=== PATIENT | male | born 1945 | race Caucasian/White ===

== ENCOUNTER 2017-12-07 05:23 | Day surgery (SDC) | payer MEDICARE, BC ==
[2017-12-07] MEDS ORDERED: fentaNYL 100 MCG/2 ML SDV IV ONE ×3 (05:24→06:32)
[2017-12-07] MEDS ORDERED: Midazolam 1 MG/ML 2 ML SDV IV ONE ×4 (05:24→06:34)
[2017-12-07] MEDS ORDERED: Dextrose 5%-0.45% NaCl 1,000 ML IV SCH (06:00)
[2017-12-07] MEDS ORDERED: Midazolam 1 MG/ML 2 ML SDV ONE (06:17)
[2017-12-07] MEDS ORDERED: fentaNYL 100 MCG/2 ML SDV ONE (06:17)
--- NOTE | 2017-12-07 07:42 | OR ---
DATE: 12/07/2017 PROCEDURE PERFORMED: Esophagogastroduodenoscopy and multiple pinch biopsies. INSTRUMENT USED: GIF-H180 Olympus video panendoscope. PREMEDICATIONS: No oral topical anesthesia used. Fentanyl 100 mcg intravenous and Versed 2 mg intravenous. Nasal O2 cannula. The procedure was done under pulse oximetry, BP recording, and desk monitor. INDICATION: The patient with episodes of nausea and dyspepsia, on long-term aspirin with iron deficiency anemia. Esophagogastroduodenoscopy is performed for detection of any active erosive lesions, Saul esophagus and/or malignancy also under consideration, H. pylori status to be determined, small bowel biopsies to be obtained if indicated, endoscopic hemostasis therapy if needed. DESCRIPTION OF PROCEDURE: The scope was passed with ease. Adequate visualization of the esophagus was made from proximal to distal areas. No upper esophageal lesions identified. No distal esophageal stricture. No uphill or downhill esophageal varices. No Ela-Cueva tear. No evidence of erosions by [place] criteria. No esophageal polyp or tumor mass identified. Z-line was seen at around 40 cm distal to the oral verge, configuration consistent with grade 1 by ZAP classification. No proximal gastric varices noted. Gastric fundus examination by retroflexion showed no polypoid lesions. No gastric ulcer, malignant mass, or vascular ectasia identified. Some scattered gastric antral erosions were noted without bleeding from them. Multiple pinch biopsies were taken from the gastric antrum and proximal body and sent for PyloriTek test for H. pylori, and if negative in an hour, the tissue was to be sent for histopathology. Duodenal bulb showed no ulcer. Visualized second part of the duodenum was unremarkable. No bleeding was noted from any of the visualized areas at the completion of examination. Photographs were taken of the duodenal bulb, gastric antrum and fundus, and distal esophagus. IMPRESSION: Gastric antral erosions. The patient tolerated the procedure well. [facility] /[id number]
[2017-12-07 08:36] VITALS: BP 138/49
== END 2017-12-07 08:40 | disposition home or self-care (01) ==
LOC: DL.ENDO 05:23
PROVIDERS: ATTEND Internal Medicine Gastroenterology
DX: K29.50 Unspecified chronic gastritis without bleeding (principal); K25.9 Gastric ulcer, unspecified as acute or chronic, without hemorrhage or perforation; D50.9 Iron deficiency anemia, unspecified; I10 Essential (primary) hypertension; I73.9 Peripheral vascular disease, unspecified; G47.30 Sleep apnea, unspecified; E78.5 Hyperlipidemia, unspecified; E66.09 Other obesity due to excess calories; Z79.82 Long term (current) use of aspirin; Z88.8 Allergy status to other drugs, medicaments and biological substances
CPT/HCPCS: 43239; 87077; J2250; J3010; J7042

== ENCOUNTER 2017-12-09 06:22 | Day surgery (SDC) | payer MEDICARE, BC ==
[~2017-12-09 06:22] MED LIST: Midazolam 1 MG/ML 2 ML SDV ONE; fentaNYL 100 MCG/2 ML SDV ONE
[2017-12-09] MEDS ORDERED: Midazolam 1 MG/ML 2 ML SDV IV ONE (06:23)
[2017-12-09] MEDS ORDERED: fentaNYL 100 MCG/2 ML SDV IV ONE (06:23)
[2017-12-09] MEDS: Dextrose 5%-0.45% NaCl 1,000 ML IV SCH (06:45)
[2017-12-09] MEDS: fentaNYL 100 MCG/2 ML SDV IV ONE ×2 (07:32→07:33)
[2017-12-09] MEDS: Midazolam 1 MG/ML 2 ML SDV IV ONE ×4 (07:34→07:38)
--- NOTE | 2017-12-09 08:53 | OR ---
DATE: 12/09/2017 PROCEDURE PERFORMED: Total colonoscopy. INSTRUMENT USED: CF-H180AL Olympus videocolonoscope. PREMEDICATIONS: Fentanyl 100 mcg intravenous and Versed 3 mg intravenous. Nasal O2 cannula. The procedure was done under pulse oximetry, BP recording, and telemetry monitor. INDICATIONS: The patient with iron deficiency anemia. Colonoscopic examination is done for detection of any polypoid lesions and removal, endoscopic hemostasis therapy if needed. DESCRIPTION OF PROCEDURE: Initial rectal exam was unremarkable. Rigid anoscopy was normal. The colonoscope was passed with ease. Numerous scattered diverticula were noted in the distal left colon along with deformity. There was moderate amount of fecal material that had to be aspirated. The scope was passed with ease up to the ileocecal area, photographs were taken of the normal- appearing cecum identified by landmarks of appendiceal orifice and double-bulged ileocecal folds. No bleeding was noted from any of the visualized areas at the commencement of the examination. No stricture. No vascular ectasia. No large isolated ulcerations seen. No evidence of diffuse inflammatory bowel disease in the form of friability, contact bleeding, or ulcerations. No polyp or tumor mass identified. Probing the proximal sides of folds and flexures, using adequate distention and clearing of the stool material, withdrawal of the scope was made, cecum to rectum time over 6 minutes. No bleeding was noted from any of the visualized areas at the completion of examination. Pigmentation of the mucosa was noted, consistent with melanosis coli. IMPRESSION: 1. Diverticulosis. 2. Melanosis coli. The patient tolerated the procedure well. [facility] /[id number]
[2017-12-09 10:37] VITALS: BP 129/48
== END 2017-12-09 09:42 | disposition home or self-care (01) ==
LOC: DL.ENDO 06:22
PROVIDERS: ATTEND Internal Medicine Gastroenterology
DX: D50.9 Iron deficiency anemia, unspecified (principal); K57.30 Diverticulosis of large intestine without perforation or abscess without bleeding; Z88.8 Allergy status to other drugs, medicaments and biological substances
CPT/HCPCS: 45378; J2250; J3010; J7042

== ENCOUNTER 2020-01-07 05:25 | Day surgery (SDC) | payer MEDICARE, BC ==
[2020-01-07] MEDS ORDERED: fentaNYL 100 MCG/2 ML SDV IV ONE ×3 (05:26→06:36)
[2020-01-07] MEDS ORDERED: Midazolam 1 MG/ML 2 ML SDV IV ONE ×3 (05:26→06:37)
[2020-01-07] MEDS ORDERED: Midazolam 1 MG/ML 2 ML SDV ONE (06:15)
[2020-01-07] MEDS ORDERED: Dextrose 5%-0.45% NaCl 1,000 ML IV SCH (06:15)
[2020-01-07] MEDS ORDERED: fentaNYL 100 MCG/2 ML SDV ONE (06:15)
[2020-01-07 10:26] VITALS: PULSE 59
[2020-01-07 10:27] VITALS: BP 124/43
--- NOTE | 2020-01-07 14:10 | OR ---
DATE: 01/07/2020 PROCEDURE: Esophagogastroduodenoscopy and multiple pinch biopsies. INSTRUMENT USED: GIF-HQ190 Olympus video panendoscope. PREMEDICATIONS: No oral or topical anesthesia used. Fentanyl 100 mcg intravenous, Versed 2 mg intravenous. Nasal O2 cannula. The procedure was done under pulse oximetry, BP recording, and monitoring manager. INDICATION: The patient with recent onset, but persistent mid dysphagia and odynophagia, unexplained and not responsive to medical measures. Esophagogastroduodenoscopy is performed for detection of any active erosive lesions, Saul esophagus and/or malignancy also under consideration, H. pylori status to be determined, esophageal dilatations if indicated, and endoscopic hemostasis therapy if needed. DESCRIPTION OF PROCEDURE: The scope was passed with ease. Adequate visualization of the esophagus was made from proximal to distal areas. No upper esophageal lesions identified. No distal esophageal stricture. No uphill or downhill esophageal varices. No Ela-Cueva tear. No evidence of erosive esophagitis by [place] criteria. No esophageal polyp or tumor mass identified. Z-line was seen at around 40 cm distal to the oral verge, configuration consistent with grade I by ZAP classification. No esophageal polyp or tumor mass identified. Four-quadrant biopsies were taken from the distal and proximal esophagus and sent for any histopathologic evidence of esophageal eosinophilia. No proximal gastric varices noted. Gastric fundus examination by retroflexion showed no polypoid lesions. No gastric ulcer, malignant mass, or vascular ectasia identified. Gastric antral erosion was noted without bleeding from it. Duodenal bulb showed no ulcer. Visualized second part of the duodenum was unremarkable. Multiple pinch biopsies were taken from the gastric antrum and proximal body and sent for PyloriTek test for H. pylori and histopathology. No bleeding was noted from any of the visualized areas at the completion of examination. Photographs were taken of the duodenal bulb, gastric antrum, fundus, and distal esophagus. IMPRESSION: Gastric antral erosions. The patient tolerated the procedure well. [facility] /[id number]
== END 2020-01-07 08:56 | disposition home or self-care (01) ==
LOC: DL.ENDO 05:25
PROVIDERS: ATTEND Internal Medicine Gastroenterology
DX: K25.9 Gastric ulcer, unspecified as acute or chronic, without hemorrhage or perforation (principal); E66.09 Other obesity due to excess calories; I10 Essential (primary) hypertension; E11.9 Type 2 diabetes mellitus without complications; I25.10 Atherosclerotic heart disease of native coronary artery without angina pectoris; D50.9 Iron deficiency anemia, unspecified; Z68.34 Body mass index [BMI] 34.0-34.9, adult
CPT/HCPCS: 43239; 87077; J2250; J3010; J7042

== ENCOUNTER 2023-06-03 12:11 | Emergency (ER) | payer MEDICARE, BC ==
[2023-06-03 12:28] VITALS: BP 122/45; PULSE 69
[2023-06-03] MEDS ORDERED: Pantoprazole 40 MG Vial IVPUSH ONE (12:34)
[2023-06-03] MEDS ORDERED: Sodium Chloride 0.9% 1,000 ML IV ONE (12:35)
[2023-06-03] MEDS ORDERED: Pantoprazole 80 MG in Sodium Chloride 0.9% 100 ML IV SCH (12:45)
[2023-06-03 12:51] LABS: MEAN CORPUSCULAR HEMOGLOBIN 29.3 pg (27.0-34.0); MEAN CORPUSCULAR VOLUME 97.6 fL (80-100); PLATELET COUNT,PLT 281 10^3/uL (150-450); RED BLOOD CELL COUNT 2.08 10^6/uL (4.6-6.2); WHITE BLOOD CELL COUNT,WBC 9.7 10^3/uL (5.0-10.0)
[2023-06-03 12:55] LABS: HEMATOCRIT 20.3 % (40.0-54.0); HEMOGLOBIN 6.1 g/dL (14.0-18.0); LYMPHOCYTES PERCENT AUTO 17.4 % (20.5-50.1); NEUTROPHILS PERCENT AUTO 72.9 % (42.2-75.2)
[2023-06-03 12:56] LABS: BASOPHILS PERCENT AUTO 1.3 % (0.0-1.0); EOSINOPHILS PERCENT AUTO 1.9 % (1.0-3.0); MONOCYTES PERCENT AUTO 7.5 % (2-8)
[2023-06-03] MEDS: Pantoprazole 40 MG Vial IVPUSH ONE ×2 (13:02→13:41)
[2023-06-03 13:07] LABS: A/G RATIO 1.1; ALBUMIN 3.4 g/dL (3.4-5.0); ANION GAP 11.3 mEq/L (7-13); BILIRUBIN TOTAL 0.3 mg/dL (0.2-1.0); CALCIUM 8.6 mg/dL (8.5-10.1); CREATININE 3.25 mg/dL (0.70-1.30); EST CRCL DRUG DOSING (CG) 19.34 mL/min; POTASSIUM,K 4.3 mmol/L (3.5-5.1); PROTEIN TOTAL,TP 6.5 g/dL (6.4-8.2)
[2023-06-03 13:17] LABS: EOSINOPHILS PERCENT MAN 1 % (1-3); LYMPHOCYTES PERCENT MAN 16 % (20-50); MONOCYTES PERCENT MAN 5 % (2-8); SEG NEUTROPHILS PERCENT MAN 78 % (42-75)
[2023-06-03 13:18] LABS: LACTIC ACID 2.7 mmol/L (0.4-2.0); MICROCYTOSIS 2+ MODERATE
[2023-06-03 13:21] LABS: INR 4.7 (0.9-1.2); PROTHROMBIN TIME 45.7 SEC (9.0-12.0); PTT,PARTIAL THROMBOPLSTIN TIME 37.2 SEC (22.0-34.0)
== END 2023-06-03 14:30 ==
LOC: DL.ED 12:11
DX: K92.2 Gastrointestinal hemorrhage, unspecified (principal); N17.9 Acute kidney failure, unspecified; D62 Acute posthemorrhagic anemia; I25.810 Atherosclerosis of coronary artery bypass graft(s) without angina pectoris; R79.1 Abnormal coagulation profile; E78.00 Pure hypercholesterolemia, unspecified; E11.22 Type 2 diabetes mellitus with diabetic chronic kidney disease; E21.3 Hyperparathyroidism, unspecified; E66.9 Obesity, unspecified; Z68.32 Body mass index [BMI] 32.0-32.9, adult; Z79.01 Long term (current) use of anticoagulants; Z79.84 Long term (current) use of oral hypoglycemic drugs; Z79.899 Other long term (current) drug therapy
CPT/HCPCS: 36415; 36430; 80053; 82272; 83605; 83690; 85025; 85610; 85730; 86850; 86900; 86901; 86920; 86922; 96365; 99285; C9113; J3490; J7030; P9016

== ENCOUNTER 2023-07-03 04:39 | Emergency (ER) | payer MEDICARE, BC ==
[2023-07-03] MEDS: Albuterol/Ipratropium 3.0-0.5 MG/3 ML Neb Soln ONE ×2 (06:52→10:43)
[2023-07-03] MEDS ORDERED: Albuterol/Ipratropium 3.0-0.5 MG/3 ML Neb Soln ONE (07:05)
[2023-07-03] MEDS ORDERED: Sodium Chloride 0.9% 10 ML Syringe FLUSH PRN (07:26)
[2023-07-03] MEDS ORDERED: methylPREDNISolone Sodium Succinate 125 MG/2 ML SDV IVPUSH ONE (07:28)
[2023-07-03] MEDS: Albuterol/Ipratropium 3.0-0.5 MG/3 ML Neb Soln NEB ONE ×2 (07:30→08:46)
[2023-07-03 07:42] LABS: INR 1.3 (0.9-1.2); PROTHROMBIN TIME 13.5 SEC (9.0-12.0)
[2023-07-03 07:46] LABS: ALANINE AMINOTRANSFERASE,ALT 388 U/L (16-63); ALBUMIN 2.7 g/dL (3.4-5.0); ALKALINE PHOSPHATASE 119 U/L (46-116); ANION GAP 13.3 mEq/L (7-13); ASPARTATE AMNIOTRANSFERASE,AST 823 U/L (15-37); BILIRUBIN TOTAL 0.7 mg/dL (0.2-1.0); BLOOD UREA NITROGEN,BUN 70 mg/dL (7-18); CALCIUM 9.7 mg/dL (8.5-10.1); CARBON DIOXIDE,CO2 30 mmol/L (21-32); CHLORIDE,CL 103 mmol/L (98-107); CREATININE 2.59 mg/dL (0.70-1.30); GLUCOSE RANDOM 147 mg/dL (70-99); LACTIC ACID 1.4 mmol/L (0.4-2.0); POTASSIUM,K 4.3 mmol/L (3.5-5.1); PROTEIN TOTAL,TP 7.3 g/dL (6.4-8.2); SODIUM,NA 142 mmol/L (136-145)
[2023-07-03 07:47] LABS: A/G RATIO 0.59; ESTIMATED GFR 25 mL/min (>=60)
[2023-07-03 07:50] LABS: BASOPHILS PERCENT AUTO 0.3 % (0.0-1.0); HEMATOCRIT 33.1 % (40.0-54.0); LYMPHOCYTES PERCENT AUTO 14.3 % (20.5-50.1); MEAN CORPUSCULAR HEMOGLOBIN 28.2 pg (27.0-34.0); MEAN CORPUSCULAR HGB CONC 30.2 g/dL (33.0-35.0); MEAN CORPUSCULAR VOLUME 93.2 fL (80-100); MONOCYTES PERCENT AUTO 8.6 % (2-8); NEUTROPHILS PERCENT AUTO 76.8 % (42.2-75.2); PLATELET COUNT,PLT 433 10^3/uL (150-450); RED BLOOD CELL COUNT 3.55 10^6/uL (4.6-6.2); WHITE BLOOD CELL COUNT,WBC 13.8 10^3/uL (5.0-10.0)
[2023-07-03] MEDS ORDERED: Aspirin 81 MG Tab.Chew PO ONE (07:52)
[2023-07-03 07:54] LABS: CORONAVIRUS COVID-19 NAA NEGATIVE (NEGATIVE); INFLUENZA A NAA NEGATIVE (NEGATIVE); INFLUENZA B NAA NEGATIVE (NEGATIVE); RESPIRATORY SYNCYTIAL VIR NAA NEGATIVE (NEGATIVE)
[2023-07-03 07:56] LABS: B-TYPE NATRIURETIC PEPTIDE,BNP 1090 pg/ml (0-100)
[2023-07-03 07:59] LABS: BAND PERCENT MAN 5 %; LYMPHOCYTES PERCENT MAN 13 % (20-50); METAMYELOCYTE PERCENT MAN 3; MONOCYTES PERCENT MAN 6 % (2-8); NRBC MANUAL 2 /100WBC
[2023-07-03 08:00] LABS: SEG NEUTROPHILS PERCENT MAN 73 % (42-75)
[2023-07-03 08:19] LABS: O2 DELIVERY DEVICE NON REBR MASK
[2023-07-03 08:21] LABS: BASE EXCESS ARTERIAL 1 mmol/L ((-2)-(+3)); BICARBONATE,ARTERIAL 27.9 mmol/L (22-26); O2 SATURATION ARTERIAL 92 % (95-100); PCO2 ARTERIAL 61 mmHg (35-45); PH,ARTERIAL 7.29 (7.35-7.45); PO2 ARTERIAL 71 mmHg (70-100)
[2023-07-03 08:24] LABS: ALLEN TEST positive
[2023-07-03] MEDS ORDERED: Heparin Sodium/0.45% NaCl 25,000 UNITS/500 ML BAG IV SCH (08:30)
[2023-07-03] MEDS ORDERED: Heparin Sodium 5,000 Units/ML Vial IVPUSH ONE (08:31)
[2023-07-03] MEDS ORDERED: Furosemide 40 MG/4 ML VIAL IVPUSH ONE (09:17)
[2023-07-03] MEDS ORDERED: Levofloxacin/Dextrose 5%-Water 500 MG in Premix Bag 1 BAG IV ONE (09:49)
[2023-07-03 10:01] LABS: APPEARANCE,URINE CLEAR (CLEAR); BILIRUBIN,URINE NEGATIVE (NEGATIVE); COLOR,URINE YELLOW (YELLOW); GLUCOSE,URINE NEGATIVE (NEGATIVE); KETONES,URINE NEGATIVE (NEGATIVE); LEUKOCYTE ESTERASE,URINE NEGATIVE (NEGATIVE); NITRITE,URINE NEGATIVE (NEGATIVE); OCCULT BLOOD,URINE NEGATIVE (NEGATIVE); PH,URINE 5.5 (5.0-9.0); PROTEIN,URINE 30 (NEGATIVE); UROBILINOGEN,URINE 0.2 mg/dL (0.2-1.0)
[2023-07-03 10:16] LABS: HYALINE CASTS,URINE MANY
[2023-07-03 10:17] LABS: RBC,URINE 0-5 /HPF (0-5)
[2023-07-03 10:18] LABS: AMORPHOUS SEDIMENT,URINE FEW /HPF (NOT SEEN); BACTERIA,URINE FEW /HPF (0-FEW/HPF); EPITHELIAL CELLS,URINE RARE /HPF (NOT SEEN); WBC,URINE 0-5 /HPF (0-5/HPF)
[2023-07-03 10:19] LABS: CALCIUM OXALATE CRYSTALS,URINE FEW /HPF (NOT SEEN)
[2023-07-03 12:17] LABS: O2 DELIVERY DEVICE BIPAP
[2023-07-03 12:18] LABS: BASE EXCESS ARTERIAL 3 mmol/L ((-2)-(+3)); O2 SATURATION ARTERIAL 90 % (95-100); PCO2 ARTERIAL 58 mmHg (35-45); PH,ARTERIAL 7.32 (7.35-7.45); PO2 ARTERIAL 62 mmHg (70-100)
[2023-07-03 12:19] LABS: ALLEN TEST positive
[2023-07-03 14:15] VITALS: BP 164/99; PULSE 101
== END 2023-07-03 12:09 ==
LOC: DL.ED 04:39
DX: R79.89 Other specified abnormal findings of blood chemistry (principal); J44.1 Chronic obstructive pulmonary disease with (acute) exacerbation; R74.01 Elevation of levels of liver transaminase levels; I13.0 Hypertensive heart and chronic kidney disease with heart failure and stage 1 through stage 4 chronic kidney disease, or unspecified chronic kidney disease; I50.9 Heart failure, unspecified; N18.9 Chronic kidney disease, unspecified; J96.01 Acute respiratory failure with hypoxia; E78.00 Pure hypercholesterolemia, unspecified; I25.10 Atherosclerotic heart disease of native coronary artery without angina pectoris; E11.9 Type 2 diabetes mellitus without complications; Z79.01 Long term (current) use of anticoagulants; Z20.822 Contact with and (suspected) exposure to COVID-19; Z79.82 Long term (current) use of aspirin; Z79.84 Long term (current) use of oral hypoglycemic drugs; E66.9 Obesity, unspecified; Z68.34 Body mass index [BMI] 34.0-34.9, adult; Z95.5 Presence of coronary angioplasty implant and graft; Z86.73 Personal history of transient ischemic attack (TIA), and cerebral infarction without residual deficits; Z79.899 Other long term (current) drug therapy
CPT/HCPCS: 0241U; 36415; 36600; 51702; 71045; 80053; 81001; 82803; 83605; 83880; 84145; 84484; 85025; 85610; 85730; 87040; 93005; 94010; 94640; 94660; 94667; 96365; 96366; 96368; 96375; 99285; A9270; J1644; J1940; J1956; J2930; J3490; J7620-GY

== ENCOUNTER 2025-01-20 07:38 | Emergency (ER) | payer MEDICARE, BC ==
[2025-01-20 08:31] LABS: O2 DELIVERY DEVICE RESUSCITATION BAG
[2025-01-20 08:32] LABS: BASE EXCESS ARTERIAL -12 mmol/L ((-2)-(+3)); BICARBONATE,ARTERIAL 19.1 mmol/L (22-26); O2 SATURATION ARTERIAL 23 % (95-100)
[2025-01-20 08:34] LABS: BASOPHILS PERCENT AUTO 0.2 % (0.0-1.0); EOSINOPHILS PERCENT AUTO 1.3 % (1.0-3.0); LYMPHOCYTES PERCENT AUTO 46.1 % (20.5-50.1); MONOCYTES PERCENT AUTO 5.4 % (2-8); NEUTROPHILS PERCENT AUTO 47.0 % (42.2-75.2); PLATELET COUNT,PLT 233 10^3/uL (150-450); RED BLOOD CELL COUNT 3.11 10^6/uL (4.6-6.2); WHITE BLOOD CELL COUNT,WBC 12.1 10^3/uL (5.0-10.0)
[2025-01-20 08:36] LABS: ALANINE AMINOTRANSFERASE,ALT 188 U/L (16-63); ASPARTATE AMNIOTRANSFERASE,AST 313 U/L (15-37); BILIRUBIN TOTAL 0.4 mg/dL (0.2-1.0); BLOOD UREA NITROGEN,BUN 32 mg/dL (7-18); CARBON DIOXIDE,CO2 20 mmol/L (21-32); CHLORIDE,CL 113 mmol/L (98-107); CREATININE 1.87 mg/dL (0.70-1.30); GLUCOSE RANDOM 228 mg/dL (70-99); POTASSIUM,K 4.5 mmol/L (3.5-5.1); PROTEIN TOTAL,TP 5.7 g/dL (6.4-8.2); SODIUM,NA 144 mmol/L (136-145)
[2025-01-20 08:37] LABS: A/G RATIO 1.11; ESTIMATED GFR 36 mL/min (>=60)
[2025-01-20 08:45] LABS: BAND PERCENT MAN 4 %; LYMPHOCYTES PERCENT MAN 43 % (20-50); SEG NEUTROPHILS PERCENT MAN 46 % (42-75)
[2025-01-20 08:46] LABS: EOSINOPHILS PERCENT MAN 2 % (1-3); LYMPHOCYTES % ATYPICAL MANUAL 2 %; MONOCYTES PERCENT MAN 3 % (2-8); NRBC MANUAL 2 /100WBC
[2025-01-20 09:22] LABS: INR 2.8 (0.9-1.2)
[2025-01-20] MEDS ORDERED: Ketamine 500 mg/10 ML MDV IVPUSH ONE (09:50)
[2025-01-20 10:10] LABS: O2 DELIVERY DEVICE VENTILATOR
[2025-01-20 10:11] LABS: BASE EXCESS ARTERIAL -8 mmol/L ((-2)-(+3)); BICARBONATE,ARTERIAL 19.8 mmol/L (22-26); O2 SATURATION ARTERIAL 100 % (95-100); PCO2 ARTERIAL 57 mmHg (35-45); PH,ARTERIAL 7.17 (7.35-7.45); PO2 ARTERIAL 350 mmHg (70-100)
[2025-01-20] MEDS: Factor IX Complex Human 500 UNIT ONE ×2 (12:01→12:02)
[2025-01-20] MEDS: Midazolam 1 MG/ML 2 ML SDV IVPUSH ONE (12:06)
[2025-01-20] MEDS: Atropine 0.4 MG/ML SDV IVPUSH ONE (12:06)
[2025-01-20] MEDS: Norepinephrine Bit/D5W Premix 250 ML ONE (12:08)
[2025-01-21 10:42] LABS: PCO2 ARTERIAL 84 mmHg (35-45)
[2025-01-21 10:43] LABS: PH,ARTERIAL 6.99 (7.35-7.45); PO2 ARTERIAL 34 mmHg (70-100)
== END 2025-01-20 11:20 | disposition expired ==
LOC: DL.ED 07:38
DX: I46.9 Cardiac arrest, cause unspecified (principal); I60.9 Nontraumatic subarachnoid hemorrhage, unspecified; I12.9 Hypertensive chronic kidney disease with stage 1 through stage 4 chronic kidney disease, or unspecified chronic kidney disease; N18.9 Chronic kidney disease, unspecified; E78.00 Pure hypercholesterolemia, unspecified; E66.9 Obesity, unspecified; E11.22 Type 2 diabetes mellitus with diabetic chronic kidney disease; Z91.041 Radiographic dye allergy status; Z79.82 Long term (current) use of aspirin; Z79.899 Other long term (current) drug therapy
CPT/HCPCS: 36415; 36600; 51702; 70450; 80053; 82803; 83735; 84484; 85025; 85610; 92950; 92960; 93005; 93010; 96365; 96366; 96374; 96375; 99291; 99292; J0171; J0461; J2250; J7168